=== PATIENT | male | born 1980 | race African-American/Black ===

== ENCOUNTER 2023-04-21 10:12 | Emergency (ER) | payer SELFPAY ==
[~2023-04-21] VITALS: Ht 172.7 cm; Wt 82.6 kg
[2023-04-21 10:12] VITALS: BP_SYST 135; PULSE 84; RESP 18; TEMP 97.4; O2SAT 99
== END 2023-04-21 11:11 | disposition left against medical advice (07) ==
LOC: SED 10:12
DX: K92.1 Melena (principal); Z53.21 Procedure and treatment not carried out due to patient leaving prior to being seen by health care provider
CPT/HCPCS: 99281

== ENCOUNTER 2023-09-05 23:30 | Emergency (ER) | payer SELFPAY ==
[~2023-09-05] VITALS: Ht 170.2 cm; Wt 86.2 kg
[2023-09-05 23:42] VITALS: BP_SYST 130; PULSE 84; RESP 20; TEMP 98.3; O2SAT 99
[2023-09-06 05:56] LABS: HEMOGLOBIN 13.4 g/dL (14.0-18.0); RED BLOOD CELL COUNT(AUTO) 4.73 MIL/uL (4.2-6.2); WHITE BLOOD COUNT (AUTO) 4.3 K/uL (4.8-10.8)
[2023-09-06 05:57] LABS: LYMPHOCYTES % (AUTO) 45.8 % (20.5-51.5); MEAN CORPUSCULAR HEMOGLOBIN 28 pg (27-31); MEAN CORPUSCULAR HGB CONC 34 % (32-36); MEAN CORPUSCULAR VOLUME 85 fL (79.0-98.0); NEUTROPHILS % (AUTO) 43.6 % (40.0-70.0); PLATELET COUNT (AUTO) 249 K/uL (130-430); RED CELL DISTRIBUTION WIDTH 13.6 % (9.0-15.0)
[2023-09-06 05:58] LABS: EOSINOPHILS % (AUTO) 1.8 % (0.0-4.0); MONOCYTES % (AUTO) 7.7 % (1.7-9.3)
[2023-09-06 05:59] LABS: BASOPHILS % (AUTO) 1.1 % (0.0-2.0); EOSINOPHILS # (AUTO) 0.1 K/uL (0.0-0.4); MONOCYTES # (AUTO) 0.3 K/uL (0.0-1.0); NEUTROPHILS # (AUTO) 1.9 K/uL (1.8-7.7); POTASSIUM 3.7 mmol/L (3.5-5.1)
[2023-09-06 06:00] LABS: CALCIUM 8.8 mg/dL (8.4-11.0)
[2023-09-06 06:01] LABS: ALBUMIN 3.8 g/dL (3.4-4.8); BILIRUBIN,DIRECT 0.2 mg/dL (0.0-0.3); TOTAL BILIRUBIN 0.5 mg/dL (0.0-1.0); TOTAL PROTEIN, SERUM 7.5 g/dL (6.4-8.3)
== END 2023-09-06 04:10 | disposition left against medical advice (07) ==
LOC: SED 23:30
DX: R10.9 Unspecified abdominal pain (principal); H92.02 Otalgia, left ear; K59.00 Constipation, unspecified; Z79.899 Other long term (current) drug therapy
CPT/HCPCS: 36415; 80048; 80076; 83690; 85025; 99283

== ENCOUNTER 2024-02-01 00:17 | Emergency (ER) | payer SELFPAY ==
[~2024-02-01] VITALS: Ht 172.7 cm; Wt 86.2 kg
[2024-02-01 00:55] VITALS: BP_SYST 117; PULSE 64; RESP 18; TEMP 98; O2SAT 100
== END 2024-02-01 01:13 | disposition home or self-care (01) ==
LOC: SED 00:17
DX: R10.9 Unspecified abdominal pain (principal); T73.0XXA Starvation, initial encounter; X58.XXXA Exposure to other specified factors, initial encounter
CPT/HCPCS: 99281